=== PATIENT | male | born 1975 | race Caucasian/White ===

== ENCOUNTER 2019-05-13 05:25 | Day surgery (SDC) | payer BC ==
[~2019-05-13] VITALS: Ht 172.7 cm; Wt 87.5 kg
--- NOTE | ~2019-05-13 | O ---
[facility] [place] [address] OPERATIVE REPORT Name: CHAI MCHUGH Room #: 150-4 [facility]..#: [id number] Admission: 05/13/19 ������������������ Attend Phys: Luis Alberto Caballero MD Discharge: ������������������ Date of : 71 Report #: [id number] THIS REPORT FOR: //name// CC: Lawrence Caballero DATE OF SERVICE: 05/13/[address] Luis Alberto Caballero and Dr. Lawrence Doss. PREOPERATIVE DIAGNOSIS: Left inguinal hernia. POSTOPERATIVE DIAGNOSIS: Left inguinal hernia with a left cord lipoma. PROCEDURE: Left inguinal hernia repair with Prolene hernia system mesh and excision of a left cord lipoma. SURGEON: Luis Alberto Caballero MD ANESTHESIA: Local IV sedation. DESCRIPTION OF PROCEDURE: The patient was brought to the operating room and placed on operative table in the supine position. Sequential compression devices were in place for DVT prophylaxis. There was no indication for preoperative antibiotics. The patient underwent IV sedation and was prepped and draped in a sterile fashion. Skin and subcutaneous tissue were then infiltrated with 0.5% Marcaine and 1% Xylocaine in a 1:1 mixture. Left inguinal skin incision was then performed using #10 scalpel blade. Hemostasis obtained using electrocautery. Dissection was carried down through subcutaneous tissue and Jazmín's fascia using the electrocautery. Further hemostasis was obtained using electrocautery as well as clamps and 2-0 chromic ties. The external oblique fascia was then identified, injected with the local mixture, incised and opened with the Metzenbaum scissors. The ilioinguinal nerve was identified, dissected free, injected with a local mixture and preserved. Cord was then elevated and held in place with a Jose drain. Cremasteric muscle fibers were then split in the direction of fibers using a clamp and electrocautery. A cord lipoma was identified, dissected free, clamped, excised and tied with a 2-0 chromic tie and sent as specimen to pathology. There was a rfrim-jl-abhdphal-sized indirect inguinal hernia sac. The floor was fairly weakened with an enlarged internal ring. The indirect inguinal hernia sac was dissected free and reduced back into the preperitoneal space and that space was then developed using blunt dissection. An extended Prolene hernia system mesh was then inserted through the internal ring and the underlay patch was then deployed into the preperitoneal space. Floor was then tightened around the connector using running 2-0 Prolene two layer Bassini repair. The overlay patch was then [facility] [address] [place] [address] OPERATIVE REPORT Name: CHAI MCHUGH Room #: 150-4 [facility]..#: [id number] Admission: 05/13/19 ������������������ Attend Phys: Luis Alberto Caballero MD Discharge: ������������������ Date of : 71 Report #: [id number] deployed into the inguinal canal and was secured superiorly and at the connector using simple interrupted 2-0 Vicryl sutures. It was secured at the pubic tubercle with the same running 2-0 Prolene suture. Mesh was split and wrapped around the cord, secured to the inguinal ligament with simple interrupted 2-0 Vicryl suture. The cord and ilioinguinal nerve were then returned to the canal intact. The external oblique fascia was then closed using a running 2-0 Vicryl suture. Jazmín's fascia was then reapproximated using 3 simple interrupted 2-0 chromic sutures and the skin then closed with a running 4-0 subcuticular Vicryl stitch. The wound was then dressed with Mastisol, 1/2-inch Steri-Strips cut in half, Telfa, 4 x 4 gauze, sponge and tape. The patient was then taken to the recovery room awake, alert and in good condition. Estimated blood loss was approximately 5 mL and the patient tolerated procedure well. All sponge, lap and instrument counts correct x 2. ��������������������������������������������� ���������������������������������������� By: ��������������������������������������������� [id number] Luis Alberto Caballero MD /nt
[2019-05-13 06:44] VITALS: BP 123/74
[2019-05-13] MEDS ORDERED: HYDROCODONE-ACE15 ML PO (10:02)
[2019-05-13 10:16] VITALS: BP 123/74
--- NOTE | 2019-05-15 09:07 | PATH ---
[facility] [address] [address] PATHOLOGY RPT PROCEDURE Name: YOUSUF MCHUGH Room #: [facility]P [facility].#: [id number] ������������������ Admission: 05/13/19 ������������������ Date of : 71 Discharge: 05/13/19 Report #: [id number] Path Case #: [id number] [facility] Accession Number: [id number] . 01 Material submitted: . soft tissue - CORD LIPOMA . 01 Clinical history: . Left inguinal hernia . 02 Diagnosis: Soft tissue, "cord lipoma", excision: - Lipoma with focal unremarkable skeletal muscle. (CHASEM:lea; 05/14/2019) QMS/05/14/2019 . 02 Electronically signed: . Ta Seay MD, Pathologist NPI- [id number] . 01 Gross description: . The specimen is received in formalin, labeled "Sheri, Yousuf, cord lipoma" and consists of a membranous segment of pink-meyer tissue with attached yellow lobulated tissue measuring 3.8 x 3.0 x 0.6 cm. Sectioning reveals no gross lesions and compliance representative dealer sections are submitted in A1. (SDY; 05/13/2019) SYU/SYU . 02 Pathologist provided ICD-10: D17.6 . 02 CPT . 366314 Specimen Comment: A courtesy copy of this report has been sent to Specimen Comment: [phone], . Specimen Comment: Report sent to / DR MONTGOMERY Performed at: [address], [place], [place] [id number] MD Kwabena Mahajan MD Phone: [phone] Performed at: [address] [id number] MD Gisselle Goodrich MD Phone: [phone]
== END 2019-05-13 11:04 | disposition home or self-care (01) ==
LOC: TBA 05:25 → OR 05:25
DX: K40.90 Unilateral inguinal hernia, without obstruction or gangrene, not specified as recurrent (principal); D17.6 Benign lipomatous neoplasm of spermatic cord; K21.9 Gastro-esophageal reflux disease without esophagitis; Z98.890 Other specified postprocedural states; Z79.899 Other long term (current) drug therapy
CPT/HCPCS: 50010; 50101; 50386; 50417; 54111; 56524; 56526; 56528; 62110; 62850; 70005